=== PATIENT | female | born 1960 | race Two or more races ===

== ENCOUNTER 2022-10-18 14:13 | Emergency (ER) | payer OTHER ==
[~2022-10-18] VITALS: Ht 160 cm; Wt 84.8 kg
[2022-10-18] MEDS ORDERED: COZAAR50 MG PO (14:24)
[2022-10-18] MEDS ORDERED: HYDROCHLOROTH12.5 MG PO (14:25)
== END 2022-10-18 19:37 | disposition home or self-care (01) ==
LOC: ER 14:13
DX: U07.1 COVID-19 (principal); I10 Essential (primary) hypertension